=== PATIENT | female | born 1985 | race Two or more races ===

== ENCOUNTER 2019-12-23 06:03 | Inpatient (IN) | payer SELFPAY ==
[~2019-12-23] VITALS: Ht 160 cm; Wt 93.9 kg
[2019-12-23] MEDS ORDERED: IV RINGERS,LACTATED 1000ML 1,000 ML IV SCH ×2 (06:13→07:37)
[2019-12-23] MEDS ORDERED: LIDOCAINE 1% PF 30 ML VIAL. INJ PRN (06:15)
[2019-12-23] MEDS ORDERED: IBUPROFEN 400 MG TABLET. PO PRN (06:15)
[2019-12-23] MEDS ORDERED: OXYTOCIN 30 UNIT/500 ML PREMIX 500 ML IV PRN ×3 (06:15→09:45)
[2019-12-23] MEDS ORDERED: TERBUTALINE 1 MG/ML VIAL. SQ PRN (06:15)
[2019-12-23] MEDS ORDERED: BUTORPHANOL 2 MG/ML VIAL. IVP PRN (06:15)
[2019-12-23] MEDS ORDERED: fentaNYL PF VIAL 100 MCG/2 ML VIAL IVP PRN (06:15)
[2019-12-23] MEDS ORDERED: 0.9 % SODIUM CHLORIDE 10 ML DISP.SYRIN. IV PRN ×2 (06:15→09:45)
[2019-12-23] MEDS ORDERED: ACETAMINOPHEN 325 MG TABLET. PO PRN ×2 (06:15→09:45)
[2019-12-23] MEDS ORDERED: ONDANSETRON PF 4 MG/2 ML VIAL. IVP PRN (06:15)
[2019-12-23] MEDS ORDERED: PENICILLIN G K 5,000,000 UNIT in IV DEXTROSE 5% 100ML 100 ML IV ONE (07:00)
[2019-12-23] MEDS ORDERED: OXYTOCIN PREMIX 30 UNIT/500 ML NS BAG. IV ONE (07:00)
[2019-12-23] MEDS ORDERED: ROPIVacaine 0.2% PF 10 ML VIAL. EPID PRN (07:45)
[2019-12-23] MEDS ORDERED: BUPIVACAINE MPF 0.25% 30 ML VIAL. EPID PRN (07:45)
[2019-12-23] MEDS ORDERED: L&D EPIDURAL SYRINGE 50 ML EPID PRN (07:45)
[2019-12-23] MEDS ORDERED: NALOXONE 0.4 MG/ML VIAL. IV PRN (07:45)
[2019-12-23 07:49] LABS: ALBUMIN 2.5 g/dL (3.4-5.0); ALBUMIN/GLOBULIN RATIO 0.6 (1.0-1.7); CALCIUM 8.4 mg/dL (8.5-10.1); CREATININE 0.7 mg/dL (0.6-1.0); POTASSIUM 3.9 mmol/L (3.5-5.1); TOTAL BILIRUBIN 0.3 mg/dL (0.2-1.0); TOTAL PROTEIN 6.7 g/dL (6.4-8.2)
[2019-12-23 07:49] LABS: BASO % 0 % (0-3); EOS % 0 % (0-3); HEMATOCRIT 35.2 % (36.0-47.0); HEMOGLOBIN 11.7 g/dL (12.0-15.5); LYMPH # 1.5 x10^3/uL (1.0-4.8); LYMPH % 15 % (24-48); MEAN CORPUSCULAR HEMOGLOBIN 27 pg (25-35); MEAN CORPUSCULAR HGB CONC 33 g/dL (31-37); MEAN CORPUSCULAR VOLUME 82 fL (79-100); MONO # 0.8 x10^3/uL (0.0-1.1); MONO % 9 % (0-9); NEUT # 7.2 x10^3/uL (1.8-7.7); NEUT % 76 % (31-73); PLATELET COUNT 267 x10^3/uL (140-400); RED BLOOD COUNT 4.28 x10^6/uL (3.50-5.40); RED CELL DISTRIBUTION WIDTH 15.1 % (11.5-14.5); WHITE BLOOD COUNT 9.6 x10^3/uL (4.0-11.0)
[2019-12-23 07:57] VITALS: BP 122/81
[2019-12-23] MEDS ORDERED: PNV1TABL25 PO (07:57)
[2019-12-23 08:27] LABS: BASO # 0.1 x10^3/uL (0.0-0.2); BASO % 1 % (0-3); EOS % 0 % (0-3); HEMATOCRIT 35.2 % (36.0-47.0); HEMOGLOBIN 11.8 g/dL (12.0-15.5); LYMPH # 1.6 x10^3/uL (1.0-4.8); LYMPH % 16 % (24-48); MEAN CORPUSCULAR HEMOGLOBIN 28 pg (25-35); MEAN CORPUSCULAR HGB CONC 34 g/dL (31-37); MEAN CORPUSCULAR VOLUME 82 fL (79-100); MONO # 0.9 x10^3/uL (0.0-1.1); MONO % 9 % (0-9); NEUT # 7.6 x10^3/uL (1.8-7.7); NEUT % 75 % (31-73); PLATELET COUNT 262 x10^3/uL (140-400); RED BLOOD COUNT 4.28 x10^6/uL (3.50-5.40); RED CELL DISTRIBUTION WIDTH 15.1 % (11.5-14.5); WHITE BLOOD COUNT 10.2 x10^3/uL (4.0-11.0)
[2019-12-23] MEDS ORDERED: ROPIVacaine 0.2% PF 10 ML VIAL. ONE (09:00)
--- NOTE | 2019-12-23 09:44 | PDOC1 ---
OB - History Hx of Present Care: Good Care Ultrasounds: Normal mid trimester US Obstetrical Complications: None Medical Complications: None Past Family/Social History * Past Medical, Surgical, Family and Obstetric Histories reviewed from chart. Rubella: Immune RPR/VDRL: Negative GBS Status: Unknown HBsAG: Negative OB - Chief Complaint & HPI Date of Admission: Date of Admission: Dec 23, 2019 at 06:03 Chief Complaint/History : 3 Para: 2 EGA: 40 Reason for admission: active labor Admission Nurse Assessment Rev: Yes OB - Admission Exam Physical Exam Vitals: VS - Last 72 Hours, by Label Date Time Temp Pulse Resp B/P (MAP) Pulse Ox O2 Delivery O2 Flow Rate FiO2 12/23/19 07:57 97.5 101 20 122/81 (95) 97.5 12/23/19 06:58 20 Room Air HEENT: Normal Heart: Regular Rate Lungs: Clear Abdomen: Gravid, Non tender, Soft Extremities: Edema Reflexes: Normal Cervical Dilatation: 4cm Effacement: 75% Station: -3 Membranes: Intact Heart Rate: Normal Accelerations: Accelerations Present Decelerations: No decelerations Contractions on Admission: < 5 Minutes Apart Intensity: Moderate Text A: 40 wks IUP Active labor GBS unknown P: Admit labor management. Start Pen G prophylaxis. JESSICA BRAN Jr, MD Dec 23, 2019 09:44
[2019-12-23] MEDS ORDERED: ZOLPIDEM 5 MG TABLET. PO PRN (09:45)
[2019-12-23] MEDS ORDERED: PHENYLEPH/MINERAL OIL/PETROLAT RECTAL OINTMENT TUBE. RC PRN (09:45)
[2019-12-23] MEDS ORDERED: diphenhydrAMINE HCL 25 MG CAPSULE PO PRN (09:45)
[2019-12-23] MEDS ORDERED: MMR per PROTOCOL. MC PRN (09:45)
[2019-12-23] MEDS ORDERED: MAG HYDROX/ALUMINUM HYD/SIMETH 30 ML ORAL.SUSP PO PRN (09:45)
[2019-12-23] MEDS ORDERED: SIMETHICONE 80 MG TAB.CHEW PO PRN (09:45)
[2019-12-23] MEDS ORDERED: MAGNESIUM HYDROXIDE 2,400 MG/30 ML ORAL.SUSP. PO PRN (09:45)
[2019-12-23] MEDS ORDERED: TDaP (Adacel) per PROTOCOL. MC PRN (09:45)
[2019-12-23] MEDS ORDERED: HYDROCORTISONE 1% TOPICAL OINTMENT 30GM TUBE. TP PRN (09:45)
--- NOTE | 2019-12-23 09:45 | PDOC ---
VAGINAL DELIVERY DATE DATE: 12/23/19 TIME: 09:44 : 3 Para: 3 EGA: 40 VAGINAL DELIVERY: VTX VACCUM ASSISTED: No PLACENTA: Spontaneous 8/9 SEX: Female WEIGHT Weight [ 3500 gm] Nuchal Cord: No Amniotic Fluid: Clear PAIN: Natural EPISIOTOMY: No EXTENSION: No EBL 300 ml COMPLICATIONS none CONDITION pt. stable Signs of Intrauterine Infectio: None Shoulder Dystocia: No JESSICA BRAN Jr, MD Dec 23, 2019 09:45
[2019-12-23] MEDS ORDERED: PENICILLIN G K 2,500,000 UNIT in IV DEXTROSE 5% 50 ML IV SCH (11:00)
[2019-12-23] MEDS: BENZOCAINE 20% TOPICAL AEROSOL SPRAY 57GM CAN. TP PRN (11:54)
[2019-12-23] MEDS: IBUPROFEN 400 MG TABLET. PO PRN ×2 (11:55→20:59)
[2019-12-23 12:15] VITALS: BP 122/76
[2019-12-23 12:25] LABS: BILIRUBIN,URINE NEGATIVE (NEG); CLARITY,URINE CLEAR; COLOR,URINE AMBER; NITRITE,URINE NEGATIVE (NEG); PROTEIN,URINE NEGATIVE (NEG-TRACE); UROBILINOGEN,URINE 0.2 mg/dL (0.2 mg/dL)
[2019-12-23 12:40] LABS: SQUAMOUS EPITHELIAL CELL,UR MANY /LPF
[2019-12-23 12:41] LABS: BACTERIA,URINE 0 /HPF (0-FEW)
[2019-12-23 13:15] VITALS: BP 117/72
[2019-12-23 18:00] VITALS: BP 116/69
[2019-12-23] MEDS: oxyCODONE/APAP 5/325 1 TAB TABLET PO PRN (20:58)
[2019-12-23] MEDS: DOCUSATE SODIUM 100 MG CAPSULE. PO PRN (20:58)
[2019-12-23 22:25] VITALS: BP 109/75
[2019-12-24] MEDS: oxyCODONE/APAP 5/325 1 TAB TABLET PO PRN ×2 (04:33→19:35)
[2019-12-24 04:42] VITALS: BP 126/75
[2019-12-24 07:27] LABS: BASO % 0 % (0-3); EOS % 0 % (0-3); HEMATOCRIT 32.5 % (36.0-47.0); HEMOGLOBIN 10.9 g/dL (12.0-15.5); LYMPH # 1.6 x10^3/uL (1.0-4.8); LYMPH % 16 % (24-48); MEAN CORPUSCULAR HEMOGLOBIN 28 pg (25-35); MEAN CORPUSCULAR HGB CONC 34 g/dL (31-37); MEAN CORPUSCULAR VOLUME 83 fL (79-100); MONO # 0.9 x10^3/uL (0.0-1.1); MONO % 9 % (0-9); NEUT # 7.1 x10^3/uL (1.8-7.7); NEUT % 74 % (31-73); PLATELET COUNT 247 x10^3/uL (140-400); RED BLOOD COUNT 3.92 x10^6/uL (3.50-5.40); RED CELL DISTRIBUTION WIDTH 15.2 % (11.5-14.5); WHITE BLOOD COUNT 9.7 x10^3/uL (4.0-11.0)
[2019-12-24] MEDS: FERROUS SULFATE 325 MG TABLET. PO SCH ×2 (08:00→17:45)
[2019-12-24] MEDS: MULTIVITAMIN with MINERAL TABLET. PO SCH (08:14)
[2019-12-24] MEDS: DOCUSATE SODIUM 100 MG CAPSULE. PO PRN ×2 (08:14→17:45)
--- NOTE | 2019-12-24 10:48 | PDOC ---
OB Progress Note Date of Service 12/24/19 Time of Evaluation 1045 Notes PT. feeling well. No complaints. Lab Laboratory Tests Test 12/23/19 07:06 12/23/19 07:08 12/23/19 10:00 12/24/19 07:00 White Blood Count 10.2 x10^3/uL (4.0-11.0) 9.6 x10^3/uL (4.0-11.0) 9.7 x10^3/uL (4.0-11.0) Red Blood Count 4.28 x10^6/uL (3.50-5.40) 4.28 x10^6/uL (3.50-5.40) 3.92 x10^6/uL (3.50-5.40) Hemoglobin 11.8 g/dL (12.0-15.5) 11.7 g/dL (12.0-15.5) 10.9 g/dL (12.0-15.5) Hematocrit 35.2 % (36.0-47.0) 35.2 % (36.0-47.0) 32.5 % (36.0-47.0) Mean Corpuscular Volume 82 fL (79-100) 82 fL (79-100) 83 fL (79-100) Mean Corpuscular Hemoglobin 28 pg (25-35) 27 pg (25-35) 28 pg (25-35) Mean Corpuscular Hemoglobin Concent 34 g/dL (31-37) 33 g/dL (31-37) 34 g/dL (31-37) Red Cell Distribution Width 15.1 % (11.5-14.5) 15.1 % (11.5-14.5) 15.2 % (11.5-14.5) Platelet Count 262 x10^3/uL (140-400) 267 x10^3/uL (140-400) 247 x10^3/uL (140-400) Neutrophils (%) (Auto) 75 % (31-73) 76 % (31-73) 74 % (31-73) Lymphocytes (%) (Auto) 16 % (24-48) 15 % (24-48) 16 % (24-48) Monocytes (%) (Auto) 9 % (0-9) 9 % (0-9) 9 % (0-9) Eosinophils (%) (Auto) 0 % (0-3) 0 % (0-3) 0 % (0-3) Basophils (%) (Auto) 1 % (0-3) 0 % (0-3) 0 % (0-3) Neutrophils # (Auto) 7.6 x10^3/uL (1.8-7.7) 7.2 x10^3/uL (1.8-7.7) 7.1 x10^3/uL (1.8-7.7) Lymphocytes # (Auto) 1.6 x10^3/uL (1.0-4.8) 1.5 x10^3/uL (1.0-4.8) 1.6 x10^3/uL (1.0-4.8) Monocytes # (Auto) 0.9 x10^3/uL (0.0-1.1) 0.8 x10^3/uL (0.0-1.1) 0.9 x10^3/uL (0.0-1.1) Eosinophils # (Auto) 0.0 x10^3/uL (0.0-0.7) 0.0 x10^3/uL (0.0-0.7) 0.0 x10^3/uL (0.0-0.7) Basophils # (Auto) 0.1 x10^3/uL (0.0-0.2) 0.0 x10^3/uL (0.0-0.2) 0.0 x10^3/uL (0.0-0.2) Sodium Level 136 mmol/L (136-145) Potassium Level 3.9 mmol/L (3.5-5.1) Chloride Level 100 mmol/L (98-107) Carbon Dioxide Level 25 mmol/L (21-32) Anion Gap 11 (6-14) Blood Urea Nitrogen 12 mg/dL (7-20) Creatinine 0.7 mg/dL (0.6-1.0) Estimated GFR (Cockcroft-Gault) 97.0 BUN/Creatinine Ratio 17 (6-20) Glucose Level 102 mg/dL (70-99) Calcium Level 8.4 mg/dL (8.5-10.1) Total Bilirubin 0.3 mg/dL (0.2-1.0) Aspartate Amino Transf (AST/SGOT) 31 U/L (15-37) Alanine Aminotransferase (ALT/SGPT) 37 U/L (14-59) Alkaline Phosphatase 148 U/L (46-116) Total Protein 6.7 g/dL (6.4-8.2) Albumin 2.5 g/dL (3.4-5.0) Albumin/Globulin Ratio 0.6 (1.0-1.7) Urine Collection Type Unknown Urine Color Shahrzad Urine Clarity Clear Urine pH 6.0 (<5.0-8.0) Urine Specific [place] 1.025 (1.000-1.030) Urine Protein Negative mg/dL (NEG-TRACE) Urine Glucose (UA) Negative mg/dL (NEG) Urine Ketones (Stick) Negative mg/dL (NEG) Urine Blood Negative (NEG) Urine Nitrite Negative (NEG) Urine Bilirubin Negative (NEG) Urine Urobilinogen Dipstick 0.2 mg/dL (0.2 mg/dL) Urine Leukocyte Esterase Negative (NEG) Urine RBC 3-5 /HPF (0-2) Urine WBC 1-4 /HPF (0-4) Urine Squamous Epithelial Cells Many /LPF Urine Transitional Epithelial Cells Few /LPF Urine Bacteria 0 /HPF (0-FEW) Urine Mucus Marked /LPF Laboratory Tests Test 12/24/19 07:00 White Blood Count 9.7 x10^3/uL (4.0-11.0) Red Blood Count 3.92 x10^6/uL (3.50-5.40) Hemoglobin 10.9 g/dL (12.0-15.5) Hematocrit 32.5 % (36.0-47.0) Mean Corpuscular Volume 83 fL (79-100) Mean Corpuscular Hemoglobin 28 pg (25-35) Mean Corpuscular Hemoglobin Concent 34 g/dL (31-37) Red Cell Distribution Width 15.2 % (11.5-14.5) Platelet Count 247 x10^3/uL (140-400) Neutrophils (%) (Auto) 74 % (31-73) Lymphocytes (%) (Auto) 16 % (24-48) Monocytes (%) (Auto) 9 % (0-9) Eosinophils (%) (Auto) 0 % (0-3) Basophils (%) (Auto) 0 % (0-3) Neutrophils # (Auto) 7.1 x10^3/uL (1.8-7.7) Lymphocytes # (Auto) 1.6 x10^3/uL (1.0-4.8) Monocytes # (Auto) 0.9 x10^3/uL (0.0-1.1) Eosinophils # (Auto) 0.0 x10^3/uL (0.0-0.7) Basophils # (Auto) 0.0 x10^3/uL (0.0-0.2) Medications Current Medications Sodium Chloride (Normal Saline Flush) 3 ml QSHIFT PRN IV AFTER MEDS AND BLOOD DRAWS; Start 12/23/19 at 06:15; Stop 12/23/19 at 11:36; Status DC Ringer's Solution 1,000 ml @ 125 mls/hr Q8H IV Last administered on 12/23/19at 06:57; Start 12/23/19 at 06:13; Stop 12/23/19 at 11:36; Status DC Butorphanol Tartrate (Stadol) 2 mg PRN Q1HR PRN IVP Severe labor pain; Start 12/23/19 at 06:15; Stop 12/23/19 at 11:36; Status DC Fentanyl Citrate (Fentanyl 2ml Vial) 100 mcg PRN Q20MIN PRN IVP Labor pain Last administered on 12/23/19at 06:58; Start 12/23/19 at 06:15; Stop 12/23/19 at 11:36; Status DC Acetaminophen (Tylenol) 650 mg PRN Q6HRS PRN PO MILD PAIN / TEMP; Start 12/22 at 06:15; Stop 12/23/19 at 09:52; Status DC Ondansetron HCl (Zofran) 4 mg PRN Q4HRS PRN IVP NAUSEA/VOMITING 1ST CHOICE; S tart 12/23/19 at 06:15; Stop 12/23/19 at 11:36; Status DC Terbutaline Sulfate (Brethine) 0.25 mg 1X PRN PRN SQ SEE COMMENTS; Start 12/23/19 at 06:15; Stop 12/23/19 at 11:36; Status DC Lidocaine HCl (Xylocaine 1% Pf 30ml Vial) 30 ml 1X PRN PRN INJ SEE COMMENTS; Start 12/23/19 at 06:15; Stop 12/23/19 at 11:36; Status DC Oxytocin/Sodium Chloride 500 ml @ 0 mls/hr CONT PRN IV SEE I/O RECORD; Start 12/23/19 at 06:15; Stop 12/23/19 at 11:36; Status DC Oxytocin/Sodium Chloride 500 ml @ 0 mls/hr CONT PRN PRN IV Post delivery bleeding; Start 12/23/19 at 06:15; Stop 12/23/19 at 11:36; Status DC Ibuprofen (Motrin) 800 mg PRN Q6HRS PRN PO MODERATE PAIN 4-6; Start 12/23/19 at 06:15; Stop 12/23/19 at 09:53; Status DC Penicillin G Potassium 1602929 unit/Dextrose 100 ml @ 100 mls/hr 1X ONCE IV Last administered on 12/23/19at 06:58; Start 12/23/19 at 07:00; Stop 12/23/19 at 11:36; Status DC Penicillin G Potassium [id number] unit/Dextrose 50 ml @ 100 mls/hr Q4H IV ; Start 12/23/19 at 11:00; Stop 12/23/19 at 11:36; Status DC Ringer's Solution 1,000 ml @ 1,000 mls/hr Q1H IV ; Start 12/23/19 at 07:37; Stop 12/23/19 at 08:36; Status DC Naloxone HCl (Narcan) 0.04 mg PRN Q1MIN PRN IV SEE COMMENTS; Start 12/23/19 at 07:45; Stop 12/23/19 at 11:36; Status DC Bupivacaine HCl (Sensorcaine Mpf 0.25%) 10 ml PRN 1X PRN EPID FOR ANESTHESIA; Start 12/23/19 at 07:45; Stop 12/23/19 at 11:36; Status DC Fentanyl Citrate 50 ml @ 14 mls/hr CONT PRN EPID PAIN; Start 12/23/19 at 07:45; Stop 12/23/19 at 11:36; Status DC Ropivacaine (Naropin 0.2%) 20 ml 1X PRN PRN EPID PER ANESTHESIA; Start 12/23/19 at 07:45; Stop 12/23/19 at 11:36; Status DC Sodium Chloride (Normal Saline Flush) 10 ml QSHIFT PRN IV AFTER MEDS AND BLOOD DRAWS Last administered on 12/23/19at 11:54; Start 12/23/19 at 09:45; Stop 12/24/19 at 08:46; Status DC Oxytocin/Sodium Chloride 500 ml @ 62.5 mls/hr CONT PRN IV SEE I/O RECORD; Start 12/23/19 at 09:45; Stop 12/23/19 at 17:44; Status DC Acetaminophen (Tylenol) 650 mg PRN Q6HRS PRN PO MILD PAIN / TEMP Last administ ered on 12/23/19at 16:51; Start 12/23/19 at 09:45 Ibuprofen (Motrin) 800 mg PRN Q8HRS PRN PO INFLAMMATION/PAIN PREVENTION Last a dministered on 12/23/19at 20:59; Start 12/23/19 at 09:45 Docusate Sodium (Colace) 100 mg PRN BID PRN PO HARD STOOL Last administered on 12/24/19at 08:14; Start 12/23/19 at 09:45 Magnesium Hydroxide (Milk Of Magnesia) 2,400 mg PRN DAILY PRN PO CONSTIPATION; Start 12/23/19 at 09:45 Al Hydroxide/Mg Hydroxide (Mylanta Plus Xs) 30 ml PRN Q4HRS PRN PO HEARTBURN / GAS; Start 12/23/19 at 09:45 Simethicone (Gas-X) 80 mg PRN AFTMEALHC PRN PO GAS / BLOATING; Start 12/23/19 at 09:45 Diphenhydramine HCl (Benadryl) 25 mg PRN Q6HRS PRN PO ITCHING; Start 12/23/19 at 09:45 Benzocaine (Americaine) 1 spray PRN QID PRN TP TOPICAL PAIN Last administered on 12/23/19at 11:54; Start 12/23/19 at 09:45 Phenyleph/Shark Oil/Min Oil/Petrol (Preparation H) 1 seble PRN QID PRN RC RECTAL PAIN; Start 12/23/19 at 09:45 Hydrocortisone (Cortaid) 1 seble PRN QID PRN TP PERINEAL PAIN; Start 12/23/19 at 09:45 Ferrous Sulfate (Feosol) 325 mg BIDWMEALS PO ; Start 12/24/19 at 08:00 Zolpidem Tartrate (Ambien) 5 mg PRN QHS PRN PO INSOMNIA, MAY REPEAT X1; Start 12/23/19 at 09:45 Info (Do NOT chart on this placeholder) 1 ea 1X PRN PRN MC SEE COMMENTS; Start 12/23/19 at 09:45; Stop 12/24/19 at 08:46; Status DC Info (Do NOT chart on this placeholder) 1 ea 1X PRN PRN MC SEE COMMENTS; Start 12/23/19 at 09:45; Stop 12/24/19 at 08:46; Status DC Oxycodone/ Acetaminophen (Percocet 5/325) 2 tab PRN Q4HRS PRN PO MODERATE PAIN, SEVERE PAIN Last administered on 12/24/19at 04:33; Start 12/23/19 at 09:45 Multivitamins (Thera M Plus) 1 tab DAILY PO Last administered on 12/24/19at 08:14; Start 12/24/19 at 09:00 Oxytocin/Sodium Chloride (Oxytocin Premix Infusion) 30 unit STK-MED ONCE IV ; Start 12/23/19 at 07:00; Stop 12/24/19 at 09:05; Status DC Ropivacaine (Naropin 0.2%) 10 ml STK-MED ONCE .ROUTE ; Start 12/23/19 at 09:00; Stop 12/24/19 at 09:09; Status DC Active Scripts Active Reported Tablet (Pnv Cmb#95/Ferrous Fumarate/Fa) 1 Each Tablet 1 Tab PO DAILY 30 Days Exam Abd: soft, non tender, fundus firm Assessment PPD#1 s/p Plan of Care: Continue current Tx, Mgmt JESSICA BRAN Jr, MD Dec 24, 2019 10:48
[2019-12-24 11:10] VITALS: BP 118/72
[2019-12-24] MEDS: IBUPROFEN 400 MG TABLET. PO PRN ×2 (13:37→23:12)
--- NOTE | 2019-12-24 16:33 | NUR ---
SS following up with referral regarding missed three hour glucose test and irregular care. SS met with mother to assess circumstances surrounding the referral. Mother is self pay pt and reported having no insurance. Mother reported that it was difficult to pay for care. Mother reported having all needed supplies for to include carseat. Mother reported that [facility] did meet with her today to complete paperwork for Medicaid. Per RN, mother bonding well with infant and mother planning to see Dr. Wolfe at [facility] for pediatric care for . SS will continue to follow as needed.
[2019-12-24 17:58] VITALS: BP 121/68
[2019-12-24 23:25] VITALS: BP 120/60
[2019-12-25 05:12] VITALS: BP 125/77
[2019-12-25] MEDS: oxyCODONE/APAP 5/325 1 TAB TABLET PO PRN ×2 (05:54→11:00)
[2019-12-25] MEDS: MULTIVITAMIN with MINERAL TABLET. PO SCH (07:50)
[2019-12-25] MEDS: DOCUSATE SODIUM 100 MG CAPSULE. PO PRN (07:50)
[2019-12-25] MEDS: BENZOCAINE 20% TOPICAL AEROSOL SPRAY 57GM CAN. TP PRN (07:51)
[2019-12-25] MEDS: IBUPROFEN 400 MG TABLET. PO PRN (07:51)
--- NOTE | 2019-12-25 08:40 | PDOC3 ---
OB DISCHARGE SUMMARY DATE OF ADMISSION: 12/23/19 DATE OF DISCHARGE: 12/25/19 REASON FOR ADMISSION: Onset of labor INTRAPARTUM PROCEDURES: Spontanous Vag Deliv DISCHARGE DIAGNOSIS: Term Delivered DISCHARGE INFORMATION: Activity (ad maria luisa), Diet (regular), Instructions (pelvic rest x 6 wks) HOSPITAL COURSE Term gestation delivered vaginally without complications JESSICA BRAN Jr, MD Dec 25, 2019 08:40
[2019-12-25] MEDS ORDERED: IBUP-1027 PO (08:42)
--- NOTE | 2019-12-25 08:42 | DISCH ---
DISCHARGE INSTRUCTIONS Condition on Discharge Condition on Discharge: Stable Activity After Discharge Activity Instructions for Disc: Activity as tolerated Lifting Instructions after Dis: No heavy lifting Driving Instructions after Dis: Do not drive today Diet after Discharge Diet after Discharge: Regular Contacting the DRMaria Isabel after DC Call your doctor for: Concerns you may have Follow-Up Follow up with: Donal in 6 wks JESSICA BRAN Jr, MD Dec 25, 2019 08:42
[2019-12-25 11:14] VITALS: BP 121/82
--- NOTE | 2019-12-25 11:18 | NUR ---
Discharge Discharge instructions given to patient at this time, no questions or concerns noted. To follow up in 6 weeks at the [facility].
== END 2019-12-25 11:59 | disposition home or self-care (01) | DRG 807 ==
LOC: OBSVTOIN 06:03 → 3 SO LND 06:03 → 3 NORTH 12:15
PROVIDERS: ADMIT Obstetrics & Gynecology; ATTEND Obstetrics & Gynecology
PROC: 10E0XZZ Delivery of Products of Conception, External Approach (ICD-10-PCS; principal; 2019-12-23)
DX: O80 Encounter for full-term uncomplicated delivery (principal); Z37.0 Single live birth; Z3A.40 40 weeks gestation of pregnancy
CPT/HCPCS: 36415; 80053; 81001; 85025; 86850; 86900; 86901; J2540; J2590; J2795; J3010; J7060; J7120; G0378